=== PATIENT | female | born 1940 | race Caucasian/White ===

== ENCOUNTER 2021-12-29 05:42 | Day surgery (SDC) | payer OTHER ==
[~2021-12-29] VITALS: Ht 152.4 cm; Wt 54.5 kg
[2021-12-29] MEDS ORDERED: SODIUM CHLORIDE 0.9% 1,000 ML IV ONE (06:30)
[2021-12-29 06:42] LABS: COVID AG,FIA SOURCE NASAL SWAB
[2021-12-29] MEDS ORDERED: SODIUM CHLORIDE 0.9% 1,000 ML ONE (07:12)
[2021-12-29] MEDS ORDERED: MIDAZOLAM HCL 5 MG/ML VIAL ONE (07:38)
[2021-12-29] MEDS ORDERED: FentaNYL CITRATE PF 100 MCG/2 ML VIAL ONE (07:38)
[2021-12-29] MEDS ORDERED: MethylPREDNISolone SOD SUCC 125 MG/2 ML VIAL IVP ONE (09:15)
[2021-12-29] MEDS ORDERED: MethylPREDNISolone SOD SUCC 125 MG/2 ML VIAL ONE (10:45)
[2021-12-29] MEDS ORDERED: SODIUM CHLORIDE 0.9% 500 ML IV ONE (11:01)
[2021-12-29] MEDS ORDERED: ALBUTEROL SULFATE 2.5 MG/0.5 ML NEB SOLUTION NEB ONE (12:00)
[2021-12-29] MEDS ORDERED: BENZOCAINE 20% 50 MCG/SPRAY 57 GM TP ONE (12:00)
[2021-12-29] MEDS ORDERED: LIDOCAINE/PF 2% 5 ML VIAL IM ONE (12:00)
[2021-12-29] MEDS ORDERED: OXYGEN THERAPY IH SCH (20:00)
== END 2021-12-29 12:00 | disposition home or self-care (01) ==
LOC: SURGERY 05:42 → EDSEX 09:15 → SURGERY 12:00
PROVIDERS: ATTEND Internal Medicine Critical Care Medicine
DX: J38.4 Edema of larynx (principal); B37.0 Candidal stomatitis; Z98.890 Other specified postprocedural states
CPT/HCPCS: 31623; 31624; 71045; 71250; 87015; 87070; 87101; 87206; 87220; 87426; 88184; 88185; C9803; J2250; J2930; J3010; J3490; J7030; J7040; 88112; 88312; J7613